=== PATIENT | female | born 1985 | race Caucasian/White ===

== ENCOUNTER 2016-11-11 16:46 | Emergency (ER) | payer OTHER | END 2016-11-11 17:12 | disposition home or self-care (01) | LOC: ER 16:46 | DX: J20.9 Acute bronchitis, unspecified (principal); R05 Cough | CPT/HCPCS: 99282 ==

== ENCOUNTER 2017-01-06 16:54 | Emergency (ER) | payer OTHER | END 2017-01-06 18:40 | disposition home or self-care (01) | LOC: ER 16:54 | DX: M79.671 Pain in right foot (principal) | CPT/HCPCS: 73630; 99283 ==